=== PATIENT | male | born 1995 | race Caucasian/White ===

== ENCOUNTER 2019-04-05 13:58 | Emergency (ER) | payer BC, OTHER ==
[~2019-04-05] VITALS: Ht 188 cm; Wt 109.0 kg
--- NOTE | 2019-04-05 14:47 | NUR ---
TWISTER HAND: PT TO ROOM FROM LOBBY
--- NOTE | 2019-04-05 14:58 | NUR ---
Assumed care of patient. Patient report left inguinal pain after working out. Patient went to work where he suffered a syncopal event. Patient seen at and instructed to come to ED over concerns regarding EKG. Here with C/O mild left inguinal pain. Patient states there is no obvious bulge or hernia. Denies lighthededness, CP, SOB and palpitations. Mother at bedside. Will continue to monitor.
--- NOTE | 2019-04-05 15:23 | NUR ---
LUNCH RN: PT RESTING IN ROOM. REGULAR RESP. NO ACUTE DISTRESS NOTED. LAY OUT CARPENTER ON. NSR NOTED. VS STABLE. WILL CONTINUE TO MONITOR.
[2019-04-05 15:31] LABS: BASOPHILS # (AUTO) 0.03 x10^3/uL (0-0.1); BASOPHILS % (AUTO) 0 % (0-1); EOSINOPHILS # (AUTO) 0.19 x10^3/uL (0-0.4); EOSINOPHILS % (AUTO) 2 % (1-7); LYMPHOCYTES # (AUTO) 1.48 x10^3/uL (1-3.4); LYMPHOCYTES % (AUTO) 15 % (22-44); MD NO; MEAN CORPUSCULAR HEMOGLOBIN 32.7 pg (27.5-34.5); MEAN CORPUSCULAR HGB CONC 33.3 g/dL (33.2-36.2); MEAN CORPUSCULAR VOLUME 98.1 fL (81-97); MEAN PLATELET VOLUME 8.4 fL (7.4-10.4); MONOCYTES # (AUTO) 0.54 x10^3/uL (0.2-0.8); MONOCYTES % (AUTO) 6 % (2-9); NEUTROPHILS # (AUTO) 7.47 x10^3/uL (1.8-6.8); NEUTROPHILS % (AUTO) 77 % (42-75); PLATELET COUNT 259 x10^3/uL (130-400); RED CELL DISTRIBUTION WIDTH 12.7 % (9.4-14.8)
[2019-04-05 15:42] LABS: ALBUMIN 4.7 g/dL (3.4-5.0); ANION GAP 5 mmol/L (5-15); CALCIUM 9.6 mg/dL (8.5-10.1); CHLORIDE 105 mmol/L (98-107)
[2019-04-05 15:46] LABS: ALANINE AMINOTRANSFERASE 43 U/L (12-78); ALKALINE PHOSPHATASE 48 U/L (45-117); BILIRUBIN,TOTAL 0.7 mg/dL (0.2-1.0)
--- NOTE | 2019-04-05 15:50 | NUR ---
report given to ASAF Prather
[2019-04-05 16:35] VITALS: BP 139/77
--- NOTE | 2019-04-05 16:35 | NUR ---
Patient/Caregiver given discharge instructions and they have confirmed that they understand the instructions. Patient ambulatory with steady gait.
== END 2019-04-05 16:55 ==
LOC: ED 16:49
DX: S00.81XA Abrasion of other part of head, initial encounter (principal); R10.814 Left lower quadrant abdominal tenderness; R55 Syncope and collapse; X58.XXXA Exposure to other specified factors, initial encounter; Y93.89 Activity, other specified; Y92.89 Other specified places as the place of occurrence of the external cause; Y99.8 Other external cause status
CPT/HCPCS: 36415; 71045; 80053; 85025; 93005; 99284